=== PATIENT | female | born 1990 | race Caucasian/White ===

== ENCOUNTER → 2017-07-31 | Outpatient (CLI) | payer BC | END | disposition home or self-care (01) | LOC: CFH 11:36 | PROVIDERS: ATTEND Nurse Practitioner Primary Care | DX: R05 Cough (principal); K20.0 Eosinophilic esophagitis; A60.9 Anogenital herpesviral infection, unspecified; J45.909 Unspecified asthma, uncomplicated; R53.83 Other fatigue; E55.9 Vitamin D deficiency, unspecified; E78.5 Hyperlipidemia, unspecified; R51 Headache; Z80.3 Family history of malignant neoplasm of breast; Z30.9 Encounter for contraceptive management, unspecified | CPT/HCPCS: 71046 ==